=== PATIENT | male | born 1990 | race Two or more races ===

== ENCOUNTER 2022-01-16 16:44 | Emergency (ER) | payer OTHER ==
[~2022-01-16] VITALS: Ht 188 cm; Wt 93.4 kg
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
--- NOTE | 2022-01-16 16:59 | NUR ---
DR WHITE AT BEDSIDE FOR EVAL.
[2022-01-16 17:33] LABS: BASOPHILS # (AUTO) 0.1 K/uL (0.0-0.2); EOSINOPHILS % (AUTO) 4.5 % (0.0-6.0); HEMATOCRIT 46 % (39-51); HEMOGLOBIN 15.7 g/dL (13.5-17.5); LYMPHOCYTES # (AUTO) 2.3 K/uL (0.8-4.8); LYMPHOCYTES % (AUTO) 36.9 % (20.0-44.0); MEAN CORPUSCULAR HGB CONC 34 g/dl (31.0-36.0); MEAN CORPUSCULAR VOLUME 86 fL (80-96); MONOCYTES # (AUTO) 0.3 K/uL (0.1-1.30); MONOCYTES % (AUTO) 4.8 % (2.0-12.0); NEUTROPHILS # (AUTO) 3.3 K/uL (1.8-8.9); NEUTROPHILS % (AUTO) 52.8 % (43.0-81.0); PLATELET COUNT (AUTO) 211 K/uL (150-450); RED BLOOD CELL COUNT(AUTO) 5.35 MIL/uL (4.5-6.0); WHITE BLOOD COUNT (AUTO) 6.2 K/uL (4.3-11.0)
[2022-01-16 17:41] LABS: CALCIUM, SERUM 9.3 mg/dL (8.5-10.1); CREATININE 1.2 mg/dL (0.6-1.3); POTASSIUM 3.6 mmol/L (3.5-5.1)
[2022-01-16 17:47] LABS: ALBUMIN 4.5 g/dL (3.4-5.0); BILIRUBIN,TOTAL 0.9 mg/dL (0.2-1.0); TOTAL PROTEIN, SERUM 7.7 g/dL (6.4-8.2)
[2022-01-16] MEDS ORDERED: IOHEXOL-300 100 ML VIAL IV ONE (18:09)
[2022-01-16] MEDS ORDERED: IV NS 0.9% 250 ML IV ONE (18:09)
[2022-01-16] MEDS ORDERED: HYDR-3972 PO (19:48)
[2022-01-16] MEDS ORDERED: IBUP-1955 PO (19:48)
--- NOTE | 2022-01-16 20:05 | NUR ---
Patient discharged to home in stable condition. Written and verbal after care instructions given. Patient verbalizes understanding of instruction.
[2022-01-16 20:06] VITALS: BP 145/92
== END 2022-01-16 20:06 | disposition home or self-care (01) ==
LOC: ER 16:51
DX: S52.131A Displaced fracture of neck of right radius, initial encounter for closed fracture (principal); S30.811A Abrasion of abdominal wall, initial encounter; S70.211A Abrasion, right hip, initial encounter; M25.522 Pain in left elbow; V29.888A Rider (driver) (passenger) of other motorcycle injured in other specified transport accidents, initial encounter; Y93.89 Activity, other specified; Y92.89 Other specified places as the place of occurrence of the external cause; Y99.8 Other external cause status
CPT/HCPCS: 99285; 74177; 29105; 73080 ×2; 73090; 71100; 85025; 36415; 80053; J7050; Q9967